=== PATIENT | female | born 1945 | race Caucasian/White ===

== ENCOUNTER 2024-11-14 12:36 | Inpatient (IN) | payer MEDICARE, BC, OTHER, SELFPAY ==
[2024-11-14] VITALS (10 sets, daily range): BP systolic 104–144; BP diastolic 42–66; PULSE 49–90; RESP 17–24; TEMP 36.7; O2SAT 90–98
--- NOTE | 2024-11-14 12:52 | ECG_ITS ---
[facility] Test Date: 2024-11-14 Pat Name: Arely Trinidad Department: Room: Gender: Female Postie: : 1945 Requested By: Rakan Williamson Order Number: [id number] Deb MD: Arturo Dangelo M.D. Measurements Intervals [place] Rate: 54 P: 67 AL: 170 QRS: 43 QRSD: 85 T: 51 QT: 438 QTc: 418 Interpretive Statements SINUS BRADYCARDIA LOW QRS VOLTAGE IN PRECORDIAL LEADS [QRS DEFLECTION < 1.0 mV IN CHEST LEADS] MINIMAL ST DEPRESSION [0.025+ mV ST DEPRESSION] Compared to ECG 08/16/2018 09:28:16 Low QRS voltage now present Minor ST depressions are new Electronically Signed On 11-14-2024 22:20:44 CDT by Arturo Dangelo M.D. [email or web address]
--- NOTE | 2024-11-14 12:54 | XR_ITS ---
WS: [email or web address] Exam: XR chest 1V portable [id number] Date/Time of Exam: 11/14/2024 12:54 PM Reason For Exam: chest pain Comparison 08/16/2018. Lungs are hyperinflated and clear. Heart size is normal. The mediastinum is normal in contour. Signs of coronary artery stenting. No pleural effusion. Several old RIGHT rib fractures are noted. Bony structures are otherwise intact. XR/XR chest 1V portable [id number] IMPRESSION: 1. Pulmonary hyperinflation. No acute finding.
--- OUTSIDE RECORDS SUMMARY | 2024-11-14 12:56 | XMS_ITS | Encounter Summary ---
Author Organization [facility] Address [address] [place] [address] Care Team Providers Care Regroover Name Role Phone BritAbdullahi MD Primary Care Provider [phone] Encounter Details Date Type Department Care Team (Latest Contact Info) Description 10/10/1998 Outpatient Historical 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
--- OUTSIDE RECORDS SUMMARY | 2024-11-14 12:56 | XMS_ITS | Encounter Summary ---
Author Organization [facility] Address [address] [place], [place] [address] [place] [id number] Phone Care Team Providers Care Hardware Installer Name Role Phone Unavailable Primary Care Provider Unavailabl e Reason for Visit * Reason Onset Date Comments Appointment 11/13/2024 Encounter Details Date Type Department Care Team (Late st Contact Info) Description 11/13/2024 Telephone [facility] [address] [place] [phone] Wanda Noland MD [address] , [address] [place] [address] Appointment Social History Tobacco Use Types Packs/Day Years Used Date Smoking Tobacco: Never Assessed Comments Unknown Sex and Gender Information Value Date Recorded Sex Assigned at Not on file Legal Sex Female 12:27 PM CDT Gender Identity Not on file Sexual Orientation Not on file documented as of this encounter Miscellaneous Notes * Telephone Encounter - [place] - 11/14/2024 10:38 AM CDT Scheduled.... * Telephone Encounter - Krystal Treviño - 11/14/2024 8:03 AM CDT Follow up * Telephone Encounter - Arely Bledsoe - 11/13/2024 4:33 PM CDT Pts daughter called following up on this. Pts daughter said that she does not want her to have another heart attack. Pts daughter said that if her chest starts hurting that they will call an ambulance. Pts daughter said her heart rate is 44. Pts daughter would like a call back. * Telephone Encounter - Krystal Trevioñ - 11/13/2024 3:07 PM CDT [facility] supposed to send referral documented in this encounter Plan of Treatment Upcoming Encounters Date Type Department Care Team (Late st Contact Info) Description 11/22/2024 1:40 PM CDT Office [facility] [address] [place] [address] Wanda Noland MD [address] [place] [address] , [address] [place] [phone] documented as of this encounter Visit Diagnoses Not on filedocumented in this encounter
--- OUTSIDE RECORDS SUMMARY | 2024-11-14 12:56 | XMS_ITS | Clinical Summary ---
Author Organization [facility] Address [address] [place] [address] Phone Care Team Providers Care E Tailer Name Role Phone Unavailable Primary Care Provider Unavailabl e Encounters Date Type Department Care Team Description 11/13/2024 Telephone [facility] [place] [facility] [address] [place] [address] Wanda Noland MD Appointment from Last 3 Months Social History Tobacco Use Types Packs/Day Years Used Date Smoking Tobacco: Never Assessed Comments Unknown Sex and Gender Information Value Date Recorded Sex Assigned at Not on file Legal Sex Female 12:27 PM CDT Gender Identity Not on file Sexual Orientation Not on file Plan of Treatment Upcoming Encounters Date Type Department Care Team (Late st Contact Info) Description 11/22/2024 1:40 PM CDT Office Visit [facility] [place] [facility] [address] [place] [phone] Wanda Noland MD [address] [place] [address] , [address] [address] Health Maintenance Due Date Last Done Comments MMR Vaccines (1 of 1 - Stand jocelin series) 1945 DTaP,Tdap,and Td Vaccines (1 - Tdap) 09/02/1951 Varicella Vaccines (1 of 2 - 13+ 2-dose series) 1957 Depression Screening 1962 Social Drivers of Health (SDoH) 1962 Mammogram 1984 Pneumococcal Vaccine: 50+ Ye ars (1 of 1 - PCV) 1994 Zoster Vaccines (1 of 2) 1994 Complete Fall Risk Assessment 2009 RSV Vaccines (1 - 1-dose 75+ series) 09/02/2019 COVID-19 Vaccine (2023-2 5 season) 2023 Influenza Vaccine (#1) 2024 HIB Vaccines Aged Out No longer eligi ble based on patient's age to complete this topic HPV Vaccines Aged Out No longer eligi ble based on patient's age to complete this topic Hepatitis A Vaccines Aged Out No long er eligible based on patient's age to complete this topic Hepatitis B Vaccines Aged Out No long er eligible based on patient's age to complete this topic IPV Vaccines Aged Out No longer eligi ble based on patient's age to complete this topic Meningococcal B Vaccine Aged Out No l onger eligible based on patient's age to complete this topic Meningococcal Vaccine Aged Out No yann stephanie eligible based on patient's age to complete this topic Pneumococcal Vaccine Aged Out No long er eligible based on patient's age to complete this topic Rotavirus Vaccines Aged Out No longer eligible based on patient's age to complete this topic
--- OUTSIDE RECORDS SUMMARY | 2024-11-14 12:56 | XMS_ITS | Clinical Summary ---
Author Organization [facility] [address] [facility] Address [address] [place] [address] Phone Care Team Providers Care Welding Rod Coater Name Role Phone BritAbdullahi MD Primary Care Provider [phone] Allergies Active Allergy Reactions Criticality Noted Date Comments Iodinated Contrast Media Rash,Itching Low 7 Medications clopidogrel (PLAVIX) 75 mg Tablet Take 75 mg by mouth. Active atorvastatin (LIPITOR) 40 mg tablet Take 40 mg by mouth late in the day. Active FLUoxetine (PROzac) 20 mg capsule Take 20 mg by mouth daily. Active aspirin (ECOTRIN EC) 81 mg Tablet, Delayed Release (E.C.) Take 81 mg by mouth daily. Active oxyCODONE-acetam inophen (PERCOCET) 10-325 mg Tablet Take 1 Tablet by mouth every 6 hours as needed for Pain or Pain, Severe. 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 Gender Identity Not on file Sexual Orientation Not on file Last Filed Vital Signs Vital Sign Reading Time Taken Comments Blood Pressure 130/74 09/29/2016 12:55 PM CDT Pulse 60 09/29/2016 12:55 PM CDT Temperature 37.2 C (98.9 F) 09/29/2016 12:45 PM CDT Respiratory Rate 15 09/29/2016 12:55 PM CDT Oxygen Saturation 97% 09/29/2016 12:55 PM CDT Inhaled Oxygen Concentration - - Weight 59.9 kg (132 lb) 09/29/2016 10:59 AM CDT Height 162.6 cm (5' 4 ) 09/29/2016 10:59 AM CDT Body Mass Index 22.66 09/29/2016 10:59 AM CDT Plan of Treatment Health Maintenance Due Date Last Done Comments DTAP/TDAP/TD VACCINES (1 - Tdap) 09/02/1963 PNEUMOCOCCAL VACCINE 50+ YEARS (1 of 2 - PCV) 09/01/18 63 ZOSTER VACCINE (1 of 2) 1994 OSTEOPOROSIS SCREENING 2009 RSV VACCINE (60+ or ) (1 - 1-dose 75+ series) 09/02/2019 INFLUENZA VACCINE (#1) 2024 Medical Devices Implanted Type Area Certification Technician Device Identifier Shelf Expiration Date Model / Serial / Lot Stent Bert Sft [id number] - [id number] Implanted:Qty: 1 on 09/15/2016 by Donald Cruz MD at [address] 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 04/21/2020 [id number] Insurance MEDICARE PART A AND B NERITES Advance Directives For more information, please contact: [phone] * Full Code (Latest Code Status on File) Date Activated Date Inactivated Comments 09/29/2016 11:36 AM 09/29/2016 3:28 PM * Full Code Date Activated Date Inactivated Comments 09/29/2016 10:55 AM 09/29/2016 11:36 AM * Full Code Date Activated Date Inactivated Comments 09/15/2016 1:02 PM 09/15/2016 5:02 PM * Full Code Date Activated Date Inactivated Comments 09/15/2016 12:22 PM 09/15/2016 1:02 PM Care Teams Welding Rod Coater Relationship Specialty Start Date End Date BritAbdullahi MD PCP - General Family Practice 09/08/16
--- OUTSIDE RECORDS SUMMARY | 2024-11-14 12:56 | XMS_ITS | Patient Health Record ---
Author Organization [facility] Address [address] [place], [place] [address] Care Team Providers Care Irrigator Head Name Role Phone Abdullahi Perea MD Primary Care Provider Unavailziggy Rosenthal MD, Blas Unavailable [phone] Jovi Umana DO Unavailable Unavailable Allergies Allergen (clinical drug ingredient) Drug/Non Drug Allergy documented on EMR Reaction Allergy Type Onset Date Status contrast dye during PET Scan (uncoded) itchy rash total red body Allergy Active Reason For Referral No Information Medications Medication SIG (Take, Route, Frequency, Duration) Notes Start Date End Date Status Tylenol with Codeine #4 300 mg-60 mg 1 tab po orally TID prn pain Active biotin 5000 mcg 1 softgel orally as directed Active atorvastatin 40 mg 1 tab orally once a day Active FLUoxetine 20 mg 1 cap orally once a day Active Plavix 75 mg 1 tab orally once a day Active aspirin 81 mg 1 tab orally once a day Active Social History Tobacco Use: Social History Observation Description Date Details (start date - stop date) Current Smoker NA - NA Tobacco use: Question Answer Notes : current smoker Are you interested in quitting? Not ready to caity t How many cigarettes a day do you smoke? 11-20 How often do you smoke cigarettes? every day How soon after you wake up do you smoke your fir st cigarette? 31-60 min Problems Problem Type SNOMED Code ICD Code Onset Dates Problem Status W/U Status Risk Notes Problem Low back pain (M54.5) Active confirmed Problem Lumbosacral spondylosis without myelopathy (03703428) Spondylosis without myelopathy or radiculopathy, lumbar region (M47.816) Active confirmed Problem Hypersomnia (64277571) Hypersomnia, unspecified (G47.10) Active confirmed Problem Acquired spondylolisthesis (411092094) Spondylolisthesis , lumbar region (M43.16) Active confirmed Problem Spinal stenosis of lumbar region (30996284) Spinal stenosis, lumbar region (M48.06) Active confirmed Problem Radiculopathy due to lumbar intervertebral disc disorder (863838879816269) Intervertebral disc disorders with radiculopathy, lumbar region (M51.16) Active confirmed Problem Myalgia (23508397) Myalgia (M79.1) Active confi rmed Problem Fibromyalgia (428723433) Fibromyalgia (M79.7) Active confirmed Problem Long-term current use of drug therapy (055686486) Other penitentiary (current) drug therapy (Z79.899) Active confirmed Plan Of Treatment No Information Insurance Providers Payer Name Payer Address Payer Phone Subscriber Number Group Number Insured Name Patient Relationship to Insured Coverage Start Date Coverage End Date WPS Medicare Part B Claims Department [address] [address] [place] [address] [id number] Arely Trinidad Self - patient is the insured [facility] [address] [place] [address] [id number] Bam Trinidad Spouse - patient is the spouse of the insured Medical (General) History Medical History History ICD Code Fibromyositis Hypertension Renal lithiasis Diabetes mellitus type II - prediabetic Fibromyalgia Lesions on the liver (history of: no yann stephanie) Heart stent Surgical History Surgery Date(Month/Year) Heart stent - LAD 01/2015 Lithotripsy x 9 Hospitalization History Reason Date(Month/Year)
--- OUTSIDE RECORDS SUMMARY | 2024-11-14 12:56 | XMS_ITS | Clinical Summary ---
Author Organization [facility] Address [address] [facility] Attn: Epic Prelude ADT NANCY REYES [address] Care Team Providers Care Patrol Man Name Role Phone Juan Tam MD Primary Care Provider [phone] Allergies Active Allergy Reactions Criticality Noted Date Comments Iodinated Contrast Media Rash,Itching Low 7 Medications clopidogreL (PLAVIX) 75 mg Tablet Take 75 mg by mouth. Active venlafaxine 150 mg Extended Release 24 hour tablet Take 150 mg by mouth daily with breakfast. Active prednisoLONE acetate 1 % eye drops,suspension 1 Drop 2 times daily. Active ofloxacin 0.3 % eye drops 1 Drop 4 times daily. Active FLUoxetine (PROzac) 20 mg capsule Take 20 mg by mouth daily. 09/14/2016 Active aspirin (ECOTRIN EC) 81 mg Tablet, Delayed Release (E.C.) Take 81 mg by mouth daily. 09/14/2016 Active atorvastatin (LIPITOR) 40 mg tablet Take 40 mg by mouth late in the day. 09/14/2016 Active oxyCODONE-acetam inophen (PERCOCET) 10-325 mg Tablet Take 1 Tablet by mouth every 6 hours as needed for Pain or Pain, Severe. 09/29/2016 Active multivit with minerals/lutein (MULTIVITAMIN-ME NERALS-LUTEIN ORAL) Take by mouth. Active Active Problems No known active problems Social History Tobacco Use Types Packs/Day Years Used Date Smoking Tobacco: Every Day Cigarettes Smokeless Tobacco: Never Alcohol Use Standard Drinks/Week Comments No 0 (1 standard drink = 0.6 oz pur e alcohol) Feeling Safe Answer Date Recorded Are you in a relationship wi th someone who hurts you emotionally and/or physically? 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 Gender Identity Not on file Sexual Orientation Not on file Last Filed Vital Signs Vital Sign Reading Time Taken Comments Blood Pressure 120/59 09/08/2022 2:07 PM CDT Pulse 64 09/08/2022 2:07 PM CDT Temperature 36.3 C (97.3 F) 09/08/2022 2:02 PM CDT Respiratory Rate 18 09/08/2022 2:07 PM CDT Oxygen Saturation 98% 09/08/2022 2:07 PM CDT Inhaled Oxygen Concentration - - Weight 54.4 kg (120 lb) 09/08/2022 12:54 PM CDT Height 162.6 cm (5' 4 ) 09/08/2022 12:54 PM CDT Body Mass Index 20.6 09/08/2022 12:54 PM CDT Plan of Treatment Health Maintenance Due Date Last Done Comments DTAP/TDAP/TD VACCINES (1 - Tdap) 09/02/1963 PNEUMOCOCCAL VACCINE 50+ YEARS (1 of 2 - PCV) 09/01/18 63 ZOSTER VACCINE (1 of 2) 1994 OSTEOPOROSIS SCREENING 2009 RSV VACCINE (60+ or ) (1 - 1-dose 75+ series) 09/02/2019 INFLUENZA VACCINE (#1) 2024 Medical Devices Implanted Type Area Geophysical E Logger Device Identifier Shelf Expiration Date Model / Serial / Lot Knee Knee Tecnis Eyhance Iol [id number] +18.0d Implanted:Qty : 1 on 09/16/2021 by Woo Watkins MD at [facility] Lens Left: Posterior Chamber 04/22/2024 [id number] / [id number] / Description:Tecnis Eyhance I OL DIB00 +18.0D Lens Iol Tecnis Eyhance 19.0 [id number] - [id number] Implanted:Qty : 1 on 09/08/2022 by Woo Watkins MD at [facility] Lens Right: Eye [employer] 07/25/2025 [id number] / [id number] / Stent Bert Sft [id number] - [id number] Implanted:Qty : 1 on 09/15/2016 by Donald Cruz MD 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
[2024-11-14 13:34] LABS: Hematocrit 39.4 % (36-47); Hemoglobin 13.50 g/dL (11.27-16.99); Mean Corpuscular HGB Conc 34.3 g/dL (30-55); Mean Corpuscular Hemoglobin 30.5 pg (27-33); Mean Corpuscular Volume 89.1 fl (85-98); Nucleated Red Blood Cells % 0 %; Platelet Count 167 10^3/cmm (157-399); Red Blood Count 4.42 10^6/uL (3.85-5.65); White Blood Count 5.64 10^3/uL (3.29-11.43)
[2024-11-14 13:49] LABS: Troponin(5th) Baseline 9 ng/L (0-10)
[2024-11-14 14:06] LABS: Alanine Aminotransferase 9 U/L (0-33); Albumin Level 4.4 g/dL (3.5-5.2); Alkaline Phosphatase 62 U/L (35-105); Anion Gap 15.1 (5-19); Aspartate Amino Transferase 18 U/L (0-32); Blood Urea Nitrogen 13 mg/dL (8-23); Calcium 9.6 mg/dL (8.5-10.5); Carbon Dioxide 26 mmol/L (22-29); Chloride 101 mmol/L (98-107); Creatinine Clr Calc Pharmacy 43.1092; Globulin 2.7 g/dL (1.3-4.6); Glucose 94 mg/dL (65-115); Osmolality Calculated 286 mOsm/kg (285-295); Potassium 4.1 mmol/L (3.5-5.1); Sodium 138 mmol/L (136-145); Total Protein 7.1 g/dL (6.6-8.7)
--- NOTE | 2024-11-14 14:54 | ECG_ITS ---
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 Measurements Intervals [place] Rate: 47 P: 42 [place]: 194 QRS: 37 QRSD: 86 T: 56 QT: 464 QTc: 413 Interpretive Statements SINUS BRADYCARDIA LOW QRS VOLTAGE IN PRECORDIAL LEADS [QRS DEFLECTION < 1.0 mV IN CHEST LEADS] Compared to ECG 11/14/2024 12:52:[address] DEPRESSION NO LONGER PRESENT Electronically Signed On 11-14-2024 22:43:36 CDT by Arturo Dangelo M.D. [email or web address]
--- NOTE | 2024-11-14 15:14 | ED_ITS ---
HPI - Chest Pain 2 General: Chief Complaint: Chest Pain Stated Complaint: CP on and off Dizzy confusion Fatigue Time Seen by Provider: 11/14/24 15:06 History of Present Illness: 79-year-old female who presents to the e mergency room complaining of intermittent chest pain. Patient states that she knows she had a heart attack 3 weeks ago she was working outside and got crushing chest pain in the way. She is intermittently having chest discomfort over the last few weeks while we are taking her history she had a sharp chest pain that lasted few seconds at other times it lasted for several minutes and resolves. She has a known history of heart disease in 2020 had overlapping stents placed by Dr. Maldonado. Reviewing her chart she has not been seeing cardiology here lately. She was seen at another ER within the last few days. 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 Associated symptoms: Deny abdominal pain, dyspnea or fever(s) Related Data Home Medications ?Medication ?Instructions ?Recorded ?Confirmed aspirin 81 mg tablet,delayed 81 mg PO DAILY 09/10/19 0 11/19/20 release (Adult Low Dose Aspirin) atorvastatin 40 mg tablet 40 mg PO DAILY 09/10/1904/10 trazodone 50 mg tablet 50 mg PO DAILY 09/10/1904/10 Previous Rx's ?Medication ?Instructions ?Recorded nitroglycerin 0.4 mg sublingual 0.4 mg sublingual Q5M PRN chest 11/19/20 tablet (Nitrostat) pain #25 tabs Allergies Allergy/AdvReac Type Severity Reaction Status Date / Time Iodinated Contrast Media Allergy Unknown Unknown Verified 01/30/20 11:57 Review of Systems 2 Const: Denies: fever(s) or chills Card: Reports: chest pain (Intermittent) Resp: Denies: dyspnea GI: Denies: abdominal pain : Denies: dysuria, urinary frequency or urinary urgency Musc: Denies: neck pain or back pain Skin/Breast: Denies: rash PFSH ED 2 PFSH: Medical History COPD (chronic obstructive pulmonary disease) Hyperlipidemia ASHD (arteriosclerotic heart disease) HTN (hypertension) Surgical History S/P angioplasty with stent S/P knee replacement Family History Father Myocardial infarction Social History Smoking and tobacco/nicotine status: current every day tobacco/nicotine user Physical Exam 2 Const: GENERAL APPEARANCE: cooperative ORIENTATION/CONSCIOUSNESS: Yes awake, Yes oriented to person, Yes oriented to place and Yes oriented to time HENMT: COMMON NORMALS: normocephalic, atraumatic and hearing grossly normal bilaterally HEAD & SCALP: normocephalic and atraumatic Resp: COMMON NORMALS: normal respiratory effort, No retractions, No use of accessory muscles and clear to auscultation bilaterally AUSCULTATION: clear to auscultation bilaterally Cardio: COMMON NORMALS: regular rate, regular rhythm and No murmurs present (Cardio) RATE: regular rate RHYTHM: regular rhythm GI: COMMON NORMALS: Soft to palpation and No hepatosplenomegaly present A USCULTATION: Yes normoactive bowel sounds PALPATION: Yes Soft to palpation, No Tenderness to palpation present (GI), No Guarding due to palpation present (GI) and Yes No hepatosplenomegaly present Extremity: COMMON NORMALS: normal to inspection, capillary refill normal, no clubbing, cyanosis or edema, no calf tenderness and no pedal edema Neuro: SENSORIUM/ORIENTATION: Yes oriented to person, Yes oriented to place and Yes oriented to time Skin: COMMON NORMALS: no rashes or lesions noted GENERAL SKIN EXAM: no rashes or lesions noted Course 2 Vital Signs: Vital signs: Vital Signs Temperature 98.0 F 11/14/24 12:54 Pulse Rate 52 L 11/14/24 12:54 Respiratory Rate 18 11/14/24 12:54 Blood Pressure 112/56 11/14/24 12:54 Pulse Oximetry 98 11/14/24 12:54 Oxygen Delivery Me thod Room Air 11/14/24 12:54 MDM - Chest Pain Medical Decision Making Patient has intermittent somewhat escalating chest pain for the last several weeks. EKG does not show any abnormalities her cardiac enzymes are negative she does have known heart disease she has overlapping stents however that was over 10 years ago she has not had any evaluation since. Discussed with Dr. Maldonado who is on-call for cardiology and has seen the patient in the past he recommends placing her on observation and doing a stress test in the morning. Dr. Valles will admit orders written. Lab Data 11/14/24 13:15 11/14/24 13:15 Radiology Impressions Chest X-Ray 11/14/24 12:54 IMPRESSION: 1. Pulmonary hyperinflation. No acute finding. Laboratory Results WBC 5.64 10^3/uL (3.29-11.43) 11/14/24 13:15 RBC 4.42 10^6/uL (3.85-5.65) 11/14/24 13:15 Hgb 13.50 g/dL (11.27-16.99) 11/14/24 13:15 Hct 39.4 % (36-47) 11/14/24 13:15 MCV 89.1 fl (85-98) 11/14/24 13:15 MCH 30.5 pg (27-33) 11/14/24 13:15 MCHC 34.3 g/dL (30-55) 11/14/24 13:15 RDW 12.6 % (12.1-15.1) 11/14/24 13:15 Plt Count 167 10^3/cmm (157-399) 11/14/24 13:15 MPV 9.8 fL (7.4-10.4) 11/14/24 13:15 Neut % (Auto) 51.4 % 11/14/24 13:15 Lymph % (Auto) 38.3 % 11/14/24 13:15 Hamilton % (Auto) 6.9 % 11/14/24 13:15 Eos % (Auto) 2.7 % 11/14/24 13:15 Baso % (Auto) 0.5 % 11/14/24 13:15 Neut # (Auto) 2.90 10^3/uL (1.8-7.7) 11/14/24 13:15 Lymph # (Auto) 2.2 10^3/uL (0.8-4.8) 11/14/24 13:15 Hamilton # (Auto) 0.4 10^3/uL (0.2-0.9) 11/14/24 13:15 Eos # (Auto) 0.2 10^3/uL (0.0-0.8) 11/14/24 13:15 Baso # (Auto) 0.0 10^3/uL (0.0-0.1) 11/14/24 13:15 Nucleated RBC % (auto) 0 % 11/14/24 13:15 Nucleated RBCs # 0.0 /100WBC 11/14/24 13:15 Sodium 138 mmol/L (136-145) 11/14/24 13:15 Potassium 4.1 mmol/L (3.5-5.1) 11/14/24 13:15 Chloride 101 mmol/L (98-107) 11/14/24 13:15 Carbon Dioxide 26 mmol/L (22-29) 11/14/24 13:15 Anion Gap 15.1 (5-19) 11/14/24 13:15 BUN 13 mg/dL (8-23) 11/14/24 13:15 Creatinine 0.9 mg/dL (0.5-0.9) 11/14/24 13:15 GFR Calculation Not Reportable 11/14/24 13:15 Glucose 94 mg/dL (65-115) 11/14/24 13:15 Calculated Osmolality 286 mOsm/kg (285-295) 11/14/24 13:15 Calcium 9.6 mg/dL (8.5-10.5) 11/14/24 13:15 Total Bilirubin 0.6 mg/dL (0.15-1.2) 11/14/24 13:15 AST 18 U/L (0-32) 11/14/24 13:15 ALT 9 U/L (0-33) 11/14/24 13:15 Alkaline Phosphatase 62 U/L (35-105) 11/14/24 13:15 Troponin T Baseline 9 ng/L (0-10) 11/14/24 13:15 Troponin T 120 Minute 7.69 ng/L (0-10) 11/14/24 15:14 Delta Troponin T -1.31 ABS# (0-10) L 11/14/24 15:14 Total Protein 7.1 g/dL (6.6-8.7) 11/14/24 13:15 Albumin 4.4 g/dL (3.5-5.2) 11/14/24 13:15 Globulin 2.7 g/dL (1.3-4.6) 11/14/24 13:15 All radiology interpretation(s) finalized by discharge EKG Data EKG 1: Interpretation: EKG 11/14/2024 1252 sinus bradycardia with a rate of 54 MD interval 170 QTc [address]. No acute ST changes noted. Nose acute ST elevation nonspecific ST changes in the lateral leads. No previous EKGs to compare to EKG 2: Interpretation: EKG 11/14/2024 1534 sinus bradycardia no acute ST changes no T wave inversion no significant change from EKG done earlier today. Rate of 47 MD interval 194 QTc 428 Discharge Plan Discharge Patient Disposition: Placed in Observation Clinical Impression: Unstable angina pectoris, ASHD (arteriosclerotic heart disease) Coding Level of Care Code ED Quitline Counselor for Chg Leo
[2024-11-14 15:49] LABS: Troponin 5 2HR 7.69 ng/L (0-10)
[2024-11-14 15:56] LABS: Troponin 5 2HR Delta -1.31 ABS# (0-10)
--- NOTE | 2024-11-14 16:15 | PC.PHAR ---
Pt states she no longer takes Plavix 75mg last fill 07/20/21 and pt has not had a bottle of Nitrostat 0.4mg since 11/19/20 and would really like to have a new order written for it today 11/14/24.
--- NOTE | 2024-11-14 17:29 | PM.HP ---
Providers/Chief Complaint Chief Complaint: CP on and off Dizzy confusion Fatigue History of Present Illness Arely Trinidad is a 79 year old woman with a history of chronic obstructive pulmonary disease (COPD), coronary artery disease (CAD) status-post single stent placement in 2019, hypertension, hyperlipidemia, and a known abdominal aortic aneurysm (AAA) who presented to the emergency department (ED) for recurrent episodes of chest pain. An episode three weeks ago was described as crushing and involved the whole upper chest and back, lasting approximately 45 minutes without seeking medical care; the patient suspects this may have been a myocardial infarction. Over the last several weeks she reports shorter but more frequent episodes occurring randomly, sometimes associated with dizziness, confusion, and post-episode fatigue. Sublingual nitroglycerin from an old prescription (two tablets taken five minutes apart) did not relieve the initial severe episode and the supply is now exhausted. No clear exertional component is noted; pain is not pleuritic and is unaffected by arm movement or deep inspiration. Denies cough, hemoptysis, fever, nausea, vomiting, diarrhea, melena, hematochezia, or lower-extremity swelling. She sleeps in a recliner for comfort but denies orthopnea or paroxysmal nocturnal dyspnea. ED work-up: vital signs BP 120/56 mmHg, pulse 52 bpm, respiratory rate 18/min, temperature 98 ?F, SpO? 98 % on room air. Complete blood count (CBC) and comprehensive metabolic panel (CMP) are unremarkable. Serial troponins: baseline 9 ng/L, two-hour 7.69 ng/L (non-rising). Electrocardiogram (ECG) shows sinus bradycardia at 47 bpm with T-wave flattening in aVL and V2, no definitive ischemic changes. Chest X-ray demonstrates pulmonary hyperinflation without acute infiltrate. Aspirin 324 mg was administered in the ED, and cardiology was consulted. Socially, she continues to smoke one pack per day and declines alcohol or illicit drugs. She reports missed doses of home aspirin and began atorvastatin only yesterday. She maintains a DNR ([id number]) preference and designates her daughter as surrogate decision-maker. Review of Systems Const: Denies: fever(s), chills, body aches or malaise ENMT: Denies: throat pain Card: Reports: chest pain; Denies: edema, pre-syncope or dyspnea on exertion Resp: Denies: dyspnea, productive cough, change in phlegm color or hemoptysis GI: Denies: abdominal pain, nausea, vomiting, diarrhea, constipation, hematochezia or melena : Denies: flank pain, urinary frequency or hematuria Musc: Denies: back pain, joint swelling or joint redness Skin/Breast: Denies: rash or new lesions Neuro: Denies: headache(s) or confusion Medications/Allergies Home Medications ?Medication ?Instructions ?Recorded ?Confirmed ?Last Taken ?Type aspirin 81 mg tablet,delayed 81 mg PO DAILY 09/10/19 11/14/24 11/13/24 History release (Adult Low Dose Aspirin) atorvastatin 40 mg tablet 40 mg PO DAILY 09/10/19 11/14/24 11/13/24 History trazodone 50 mg tablet 50 mg PO BEDTIME 09/10/19 11/14/24 11/13/24 History nitroglycerin 0.4 mg sublingual 0.4 mg sublingual Q5M PRN chest 11/19/20 11/14/24 Unknown Rx tablet (Nitrostat) pain #25 tabs Allergies Allergy/AdvReac Type Severity Reaction Status Date / Time Iodinated Contrast Media Allergy Unknown Unknown Verified 01/30/20 11:57 PFSH Acute PFSH: Medical History Emphysema lung AAA (abdominal aortic aneurysm) COPD (chronic obstructive pulmonary disease) Hyperlipidemia ASHD (arteriosclerotic heart disease) HTN (hypertension) Surgical History History of coronary angioplasty with insertion of stent S/P angioplasty with stent S/P knee replacement Family History Father Myocardial infarction Social History (Updated 11/14/24 @ 17:44 by Silverio Valles MD) Smoking and tobacco/nicotine status: current every day tobacco/nicotine user Alcohol intake: never Substance/Drug Use: never Vitals/I&O/Wt Last Vital Signs Temp 98.0 F 11/14/24 12:54 Pulse 52 L 11/14/24 12:54 Resp 18 11/14/24 12:54 BP 112/56 11/14/24 12:54 Pulse Ox 98 11/14/24 12:54 O2 Del Method Room Air 11/14/24 12:54 Weight last 48 hrs Weight 54.885 kg Physical Exam Narrative: Accompanied by her daughter Const: COMMON NORMALS: patient oriented x3 and alert GENERAL APPEARANCE: cooperative ORIENTATION/CONSCIOUSNESS: Yes awake HENMT: COMMON NORMALS: oropharynx normal Neck/C-Spine: COMMON NORMALS: no JVD Resp: COMMON NORMALS: normal respiratory effort and clear to auscultation bilaterally AUSCULTATION: clear to auscultation bilaterally Cardio: COMMON NORMALS: no JVD, regular rhythm, S1 normal heart sound present, S2 normal heart sound present and No murmurs present (Cardio) RHYTHM: regular rhythm HEART SOUNDS: S1 normal heart sound present and S2 normal heart sound present GI: COMMON NORMALS: Normal to inspection, nondistended, normoactive bowel sounds present, Soft to palpation and non-tender PALPATION: Yes Soft to palpation Extremity: COMMON NORMALS: no joint enlargement and no pedal edema Neuro: COMMON NORMALS: patient oriented x3 and moves all extremities SENSORIUM/ORIENTATION: Yes alert Skin: COMMON NORMALS: no rashes or lesions noted GENERAL SKIN EXAM: no rashes or lesions noted Data 11/14/24 13:15 11/14/24 13:15 A&P Assessment and plan 1. Unstable angina pectoris: Recurrent chest pain : Episodes of crushing to mild chest pain over several weeks, non-pleuritic, associated with dizziness/confusion; initial severe episode 3 weeks ago lasting 45 minutes. Possible unstable angina. Serial troponins non-dynamic; ECG sinus bradycardia without ischemia. Differential includes unstable angina/NSTEMI, vasospasm, pulmonary embolism, musculoskeletal pain. Free of chest pain at this time. Reviewed vitals, CBC, CMP, troponin baseline and 2-hour, EKG, on my interpretation with sinus bradycardia, nonspecific changes with T wave flattening in aVL and V2, pending official read. Reviewed chest x-ray, ED provider note, discussed with ED provider. - Continue serial troponin monitoring per ED protocol - Assess echocardiogram - Continue aspirin, heparin drip for possible unstable angina. Monitor for risk of bleeding. Continue statin. No beta-stephanie due to bradycardia. - Admit for telemetry observation to watch for recurrent pain - Administer nitroglycerin as needed for chest pain - Obtain 12-lead ECG with any recurrent pain - Order D-dimer to evaluate for possible pulmonary embolism - Cardiology consultation Plan: Coronary artery disease : Known CAD with prior stent (2019) and multiple risk factors (HTN, HLD, tobacco). Has missed aspirin doses. Increasing frequency of chest pain raises concern for ischemia or in-stent restenosis. - Cardiology consultation arranged in ED - Schedule stress test (avoid caffeine; NPO after midnight) - If stress test abnormal, consider repeat coronary angiogram (per cardiology) - Order transthoracic echocardiogram to assess cardiac function Sinus bradycardia : ED ECG shows sinus bradycardia at 47 bpm; pulse 52 bpm. Chronic obstructive pulmonary disease : History of COPD with radiographic pulmonary hyperinflation; currently asymptomatic from respiratory standpoint. - Monitor respiratory status during hospitalization Tobacco use disorder : Active smoker (1 pack/day) contributing to CAD, COPD, and AAA risk. Discussed smoking cessation for 3-1/2 minutes. She has not been ready to quit. Has not tried. Discussed risks including lung disease with known emphysema, but also cardiovascular risks and various types of cancer. - Provided smoking-cessation counseling; nicotine patches/lozenges offered, patient declined but may request if cravings arise Abdominal aortic aneurysm : Long-standing AAA discovered ~15?20 years ago on prior imaging; never followed with ultrasound. - Order abdominal ultrasound to assess current AAA size - Advise outpatient surveillance via primary care after discharge Goals of care discussion : Patient prefers DNR status; wishes comfort measures only if unable to return to normal function; daughter designated surrogate. - Document DNR status in chart Hospitalization bundle : General inpatient management needs. - Admit to medical floor for monitoring and further work-up - Allow diet as tolerated, avoiding caffeine; NPO after midnight for stress test PDMP PDMP Reviewed: Not Reviewed Attestations Medical Necessity Statement*: Place in observation for additional assessment management of recurrent chest pain, possible unstable angina in a lady with underlying CAD, history of prior stent, CAD risk factors with active smoking. Diagnoses Unstable angina pectoris I20.0
--- NOTE | 2024-11-14 19:09 | ECG_ITS ---
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 Measurements Intervals Helen Rate: 47 P: 57 MS: 211 QRS: 44 QRSD: 90 T: 66 QT: 457 QTc: 408 Interpretive Statements SINUS BRADYCARDIA WITH FIRST DEGREE AV BLOCK MINIMAL ST DEPRESSION [0.025+ mV ST DEPRESSION] Compared to ECG 11/14/2024 15:34:58 First degree AV block now present Electronically Signed On 11-14-2024 22:37:20 CDT by Arturo Dangelo M.D. [email or web address]
[2024-11-14 19:44] LABS: Troponin 5 6HR 7.35 ng/L (0-10); Troponin 5 6HR Delta -1.65 ng/L (0-12)
--- NOTE | 2024-11-14 20:24 | USCV_ITS ---
Arely Trinidad Age: 79 Gender: F : 1945 Exam Date: 11/14/2024 20:48 Ordering Phys: Silverio Valles MD Technologist: SHREYAS Exam Location[place] [facility] [place] Indication: UA, COPD, CAD s/p PCI, HTN, HL BP: 104 / 63 HR: 44 Rhythm: Sinus bradycardia Technical Quality: Adequate MEASUREMENTS (Male / Female) Normal Values 2D ECHO LV Diastolic Diameter PLAX 3.5 cm 4.2 - 5.9 / 3.9 - 5.3 cm IVS Diastolic Thickness 1.1 cm 0.6 - 1.0 / 0.6 - 0.9 cm IVS Systolic Thickness 2.0 cm LVPW Diastolic Thickness 1.2 cm 0.6 - 1.0 / 0.6 - 0.9 cm LVPW Systolic Thickness 1.3 cm LVOT Diameter 1.6 cm LV Ejection Fraction 2D Teich 61.8 % LV Ejection Fraction MOD 4C 64.8 % LV Ejection Fraction MOD 2C 56.7 % LV Ejection Fraction 2C AL 55.0 % LA Diameter 2.5 cm Aorta at Sinotubular Diameter 2.7 cm IVC Diameter 1.6 cm M-MODE LA Ao Ratio MM 1.1 AV Cusp Separation MM 1.4 cm DOPPLER AV Peak Velocity 105.0 cm/s LVOT Peak Velocity 75.0 cm/s AV Area Cont Eq vti 2.0 cm squared AV Area Cont Eq pk 1.4 cm squared MV Peak Velocity 121.0 cm/s MV Area PHT 2.8 cm squared Mitral E to A Ratio 0.9 TV Peak Velocity 207.5 cm/s TR Peak Velocity 214.0 cm/s TR Peak Gradient 18.3 mmHg TV Peak E Velocity 32.0 cm/s PV Peak Velocity 69.0 cm/s FINDINGS Left Ventricle Normal left ventricular size and systolic function with no regional wall motion abnormalities. Normal left ventricular size and systolic function, EF 55-60%. Grade 1 diastolic dysfunction Right Ventricle Normal right ventricular size and systolic function. Right Atrium Normal right atrial size. Left Atrium Normal left atrial size. Mitral Valve Mild mitral annular calcification. Mild mitral valve regurgitation. Aortic Valve Thickened aortic valve. No aortic valve stenosis. Tricuspid Valve Mild tricuspid valve regurgitation. Pulmonary artery systolic pressure is normal Pulmonic Valve Not well visualized Pericardium Normal Aorta Normal in size IVC Appears to be normal CONCLUSIONS LV systolic function is normal with EF of 55-60% Grade 1 diastolic dysfunction Mild mitral valve regurgitation. Mild tricuspid valve regurgitation. Kyaw Mackay MD (Electronically Signed) Final Date: 14 November 2024 23:26 S
--- NOTE | 2024-11-14 20:24 | USCV_ITS ---
Arely Trinidad Age: 79 Gender: F : 1945 Exam Date: 11/14/2024 21:14 Ordering Phys: Silverio Valles MD Technologist: SHREYAS [place] [facility] [place]: reported history of AAA. HISTORY: Diameter (cm) AP x Transverse x Length Velocity (cm/s) Waveform Prox Aorta: 2.14 x 2.34 x Triphasic Mid Aorta: 1.69 x 2.24 x Triphasic Distal Aorta: 2.07 x 2.09 x Triphasic Right Iliac Prox: 1.60 x 1.80 x Triphasic Left Iliac Prox: 1.10 x 1.50 x Triphasic Stent Prox Landing x x Aneurysmal Sac Max x x Lt Lat Sac Dim Rt Lat Sac Dim Stent Dist Landing x x Right Iliac Stent x x Left Iliac Stent x x Right Renal Art Left Renal Art FINDINGS: CONCLUSIONS Normal caliber abdominal aorta Slightly Aneurysmal Right common iliac artery 1.6 x 1.8cm Normal Left Iliac Moderate atheromatous disease Tommie Bender MD (Electronically Signed) Final Date: 15 November 2024 08:50 S
[2024-11-14] MEDS: heparin drip 25,000 UNIT/500 ML PREMIX 16 UNIT IV (21:50)
[2024-11-14] MEDS: heparin 5,000 unit/mL INJ 1 mL IVP (21:50)
[2024-11-15] VITALS (7 sets, daily range): BP systolic 96–129; BP diastolic 45–58; PULSE 47–73; RESP 14–19; TEMP 35.8–36.7; O2SAT 94–98
--- NOTE | 2024-11-15 | ECG_ITS ---
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 Interpretive Statements Procedure: A total of 0.4 mg of Lexiscan was infused over 20 seconds. The stress phase was continued for a total of 5 minutes. Sestamibi was injected 20 seconds after the Lexiscan infusion. Vital signs and ECG findings: Resting EKG???sinus bradycardia, heart rate 48, mild ST depressions Stress EKG???no worsening of baseline mild ST depressions At baseline, blood pressure was 129/49 with a heart rate of 46 bpm The lowest blood pressure after Lexiscan infusion was 110/53 with a heart rate of 75 bpm. In recovery, the patient's blood pressure was 119/52 with a heart rate of 72. Conclusion: 1. Normal EKG response to Lexiscan infusion 2. No Lexiscan induced chest pain or cardiac arrhythmia. 3. Normal blood pressure and heart rate response. 4. Nuclear myocardial perfusion scan pending; see separate report. Electronically Signed On 11-15-2024 09:10:05 CDT by Arturo Dangelo M.D. [email or web address] [id number]
[2024-11-15 04:47] LABS: Hematocrit 38.2 % (36-47); Hemoglobin 13.00 g/dL (11.27-16.99); Mean Corpuscular HGB Conc 34.0 g/dL (30-55); Mean Corpuscular Hemoglobin 30.2 pg (27-33); Mean Corpuscular Volume 88.6 fl (85-98); Nucleated Red Blood Cells % 0 %; Platelet Count 163 10^3/cmm (157-399); Red Blood Count 4.31 10^6/uL (3.85-5.65); White Blood Count 4.73 10^3/uL (3.29-11.43)
[2024-11-15 05:09] LABS: Anion Gap 15.0 (5-19); Blood Urea Nitrogen 13 mg/dL (8-23); Calcium 9.2 mg/dL (8.5-10.5); Carbon Dioxide 23 mmol/L (22-29); Chloride 106 mmol/L (98-107); Creatinine Clr Calc Pharmacy 47.9513; Glucose 96 mg/dL (65-115); Osmolality Calculated 290 mOsm/kg (285-295); Potassium 4.0 mmol/L (3.5-5.1); Sodium 140 mmol/L (136-145)
[2024-11-15 06:29] LABS: Partial Thromboplastin Time 250.0 SECONDS (23.9-36.7)
[2024-11-15] MEDS: ondansetron 2 mg/ML SDV 2 mL 4 MG IVP (07:54)
[2024-11-15 09:14] LABS: Partial Thromboplastin Time 56.6 SECONDS (23.9-36.7)
--- NOTE | 2024-11-15 09:32 | PC.NURSE ---
patient's ptt came back at 56 after being off for 2 hours for a ptt of 250. Per Dr Melendez, restart at same dose.
[2024-11-15] MEDS: heparin drip 25,000 UNIT/500 ML PREMIX 16 UNIT IV (09:39)
--- NOTE | 2024-11-15 09:51 | P.CONIM_ITS ---
<Statement entered by Gildardo Archer MD - 11/15/24 20:06> Patient was evaluated and cared for in conjunction with an advanced practice practitioner. I personally examined the patient and reviewed the chart and all pertinent data including imaging, telemetry, and laboratory results. I discussed the patient in detail with the advanced practice practitioner. Please see their note for complete H&P testing result and agreed upon plan of care for the patient. Providers/Reason For Consult 2 Consulting Physician/Specialty*: Dr Darlin Archer, interventional cardiology Reason for Consult*: Chest pain Requesting Physician: Dr. Valles Attending Physician: Kimmie Melendez MD History of Present Illness History of Present Illness Arely Trinidad is a 79 year old female with past medical history of COPD, CAD (stent to the LAD in 2019), hypertension, hyperlipidemia, questionable history of abdominal aortic aneurysm. She presented to the emergency room yesterday with chest pain and dizziness, reported she had a heart attack 3 weeks ago but did not receive medical attention at that time. Since then she has had some chest pain with fatigue afterward, nonexertional and nonpleuritic. Ultrasound of the aorta did not show aneurysm. D-dimer negative. Troponin series: 9->7 -> 7. Labs otherwise unremarkable, normal renal function. Echocardiogram 11/14/2024: LVEF 55 to 60% grade 1 diastolic dysfunction, mild mitral and tricuspid regurgitation. EKG shows sinus bradycardia with first- degree block, heart rate 47 bpm. Initial EKG showed minimal ST depression in the inferior leads. Stress test obtained this morning pending read. She is a DNR. Review of Systems 2 Const: Denies: fever(s), chills, change in weight, fatigue or diaphoresis Eyes: Denies: change in vision ENMT: Denies: epistaxis Card: Reports: chest pain; Denies: palpitations, irregular heart rhythm, edema, syncope, pre-syncope, dyspnea on exertion, orthopnea or leg pain with exertion Resp: Denies: dyspnea, productive cough or wheezing GI: Denies: nausea, vomiting, hematemesis, hematochezia or melena : Denies: hematuria Musc: Denies: extremity swelling Brigido/Lymph: Denies: easy bruising or easy bleeding Medications/Allergies Home Medications ?Medication ?Instructions ?Recorded ?Confirmed ?Last Taken ?Type aspirin 81 mg tablet,delayed 81 mg PO DAILY 09/10/19 0 11/14/24 11/13/24 History release (Adult Low Dose Aspirin) atorvastatin 40 mg tablet 40 mg PO DAILY 09/10/19 08/10/1211/13/24 History trazodone 50 mg tablet 50 mg PO BEDTIME 09/10/1911/13/24 History nitroglycerin 0.4 mg sublingual 0.4 mg sublingual Q5M PRN chest 11/19/20 11/14/24 Unknown Rx tablet (Nitrostat) pain #25 tabs Allergies Allergy/AdvReac Type Severity Reaction Status Date / Time Iodinated Contrast Media Allergy Unknown Unknown Verified 01/30/20 11:57 Current Medications Generic Name Dose Route Start Last Admin Trade Name Freq PRN Reason Stop Dose Admin Aspirin 81 mg 11/15/24 09:00 11/15/24 09:05 Aspirin 81 Mg Ec Tablet PO 81 mg DAILY RADHA Administration Atorvastatin Calcium 40 mg 11/15/24 09:00 11/15/24 09:05 Atorvastatin 40 Mg Tablet PO 40 mg DAILY RADHA Administration Sodium Chloride 1,000 mls @ 100 mls/hr 11/14/24 20:24 11/14/24 21:48 Sodium Chloride 0.9% IV 100 mls/hr .Q10H RADHA Administration Heparin Sodium/Sodium Chloride 25,000 unit in 500 mls @ 0 mls/hr 11/14/24 20:24 11/15/24 09:39 Heparin Drip IV 14.58 unit/kg/hr CONT RADHA 16 mls/hr Protocol Administration Per Protocol Ondansetron HCl 4 mg 11/15/24 06:05 11/15/24 07:54 Ondansetron 2 Mg/Ml Sdv 2 Ml IVP 4 mg Q2M PRN Administration NAUSEA Trazodone HCl 50 mg 11/14/24 21:00 11/14/24 21:53 Trazodone 50 Mg Tablet PO 50 mg BEDTIME RADHA Administration PFSH Acute 2 PFSH: Medical History Emphysema lung AAA (abdominal aortic aneurysm) COPD (chronic obstructive pulmonary disease) Hyperlipidemia ASHD (arteriosclerotic heart disease) HTN (hypertension) Surgical History History of coronary angioplasty with insertion of stent S/P angioplasty with stent S/P knee replacement Family History Father Myocardial infarction Social History Smoking and tobacco/nicotine status: current every day tobacco/nicotine user Alcohol intake: never Substance/Drug Use: never Vitals/I&O/Wt Last Vital Signs Temp 97.4 F L 11/15/24 04:00 Pulse 73 11/15/24 07:41 Resp 16 11/15/24 04:00 BP 119/52 11/15/24 07:41 Pulse Ox 98 11/15/24 04:00 O2 Del Method Room Air 11/15/24 04:00 11/14/24 11/15/24 11/15/24 22:59 06:59 14:59 Intake Total 139.2 / 139.2 0 / 0 Balance 139.2 / 139.2 0 / 0 Weight last 48 hrs Weight 117 lb 9.6 oz Weight 116 lb Weight 121 lb Physical Exam 2 Const: COMMON NORMALS: no acute distress and patient oriented x3 GENERAL APPEARANCE: cooperative and comfortable ORIENTATION/CONSCIOUSNESS: Yes awake, Yes oriented to person, Yes oriented to place and Yes oriented to time Chest: COMMONS NORMALS: normal inspection of the chest and normal palpation of entire chest wall CHEST: Yes Symmetrical chest wall rise Resp: COMMON NORMALS: normal respiratory effort, No retractions, No use of accessory muscles and clear to auscultation bilaterally EFFORT & INSPECTION: Yes symmetric chest movement AUSCULTATION: clear to auscultation bilaterally Cardio: COMMON NORMALS: regular rate, regular rhythm, S1 normal heart sound present, S2 normal heart sound present, No gallops present (Cardio), No clicks present (Cardio), No murmurs present (Cardio) and No rub (Cardio) RATE: r egular rate RHYTHM: regular rhythm HEART SOUNDS: S1 normal heart sound present and S2 normal heart sound present PERIPHERAL PULSES: radial pulses present Extremity: COMMON NORMALS: no pedal edema Neuro: COMMON NORMALS: patient oriented x3 and moves all extremities S ENSORIUM/ORIENTATION: Yes oriented to person, Yes oriented to place and Yes oriented to time Data 11/15/24 04:17 11/15/24 04:17 A&P Assessment and plan 1. ASHD (arteriosclerotic heart disease): 2. Unstable angina pectoris: 3. HTN (hypertension): Plan: She is chest pain-free currently. She has been started on a heparin infusion. Due to her history of stent placement and typical chest pain symptoms, we will plan for coronary angiogram likely Tuesday. She can eat today and tomorrow. PDMP PDMP Reviewed: Not Reviewed Coding Level of Care Code Acute Code for [facility] Diagnoses ASHD (arteriosclerotic heart disease) I25.10 Unstable angina pectoris I20.0 HTN (hypertension) I10
--- NOTE | 2024-11-15 12:25 | PM.PN ---
Subjective Subjective: The patient was seen in the morning and was comfortable alert oriented and interactive On heparin drip continue, to follow the stress test that has been done today Vitals/I&O/Wt Last Vital Signs Temp 97.9 F 11/15/24 11:59 Pulse 58 L 11/15/24 11:59 Resp 19 H 11/15/24 11:59 BP 98/46 11/15/24 11:59 Pulse Ox 95 11/15/24 11:59 O2 Del Method Room Air 11/15/24 04:00 11/14/24 11/15/24 11/15/24 22:59 06:59 14:59 Intake Total 139.2 / 139.2 1480 / 1480 Balance 139.2 / 139.2 1480 / 1480 Weight last 48 hrs Weight 53.342 kg Weight 52.617 kg Weight 54.885 kg Physical Exam Narrative: General: Alert oriented x3, patient seen without any distress HEENT: Normocephalic, atraumatic, EOMI, breathing at room air Cardio: Regular rate rhythm, normal S1-S2, no murmurs rubs gallops, JVD_normal Respiratory: Good bilateral air entry, no wheezes no rhonchi appreciated GI: Abdomen soft, nontender, nondistended, normoactive bowel sounds present all 4 quadrants, Neuro: Cranial nerves II to XII intact, strength 5/5, sensation 5/5, no gross neurological deficit Behavior: Appropriate and cooperative Extremities: Pulses 2+, no edema, no cyanosis Skin: Visible skin intact, no rashes Data 11/15/24 04:17 11/15/24 04:17 A&P Assessment and plan 1. Unstable angina pectoris: Recurrent chest pain/unstable angina likely? Versus musculoskeletal pain is a differential:Episodes of crushing to mild chest pain over several weeks, non-pleuritic, associated with dizziness/confusion; initial severe episode 3 weeks ago lasting 45 minutes. Possible unstable angina. - Serial troponins rise not significant - ECG sinus bradycardia without ischemia. -Echo did not show any regional wall motion with EF of 55 to 60% - Aspirin and statin hold beta-blockers due to bradycardia - Admit for telemetry observation to watch for recurrent pain - Nitro as needed for chest pain -D-dimers negative therefore PE less likely and chest pain resolved - Cardiology on board and to follow-up with, Plan for coronary angio likely on Tuesday Plan: Sinus bradycardia : Hold beta-blockers EKG showed sinus bradycardia without any AV blocks Continue to monitor heart rate and any syncopal Chronic obstructive pulmonary disease : Stable -DuoNebs as needed - Monitor respiratory status during hospitalization Tobacco use disorder : Active smoker (1 pack/day) contributing to CAD, COPD, and AAA risk. Discussed smoking cessation for 3-1/2 minutes. She has not been ready to quit. Has not tried. Discussed risks including lung disease with known emphysema, but also cardiovascular risks and various types of cancer. - Provided smoking-cessation counseling; nicotine patches/lozenges offered, patient declined but may request if cravings arise Abdominal aortic aneurysm : Long-standing AAA discovered ~15?20 years ago on prior imaging; never followed with ultrasound. - Order abdominal ultrasound to assess current AAA size - Advise outpatient surveillance via primary care after discharge Goals of care discussion : Patient prefers DNR status; wishes comfort measures only if unable to return to normal function; daughter designated surrogate. - Document DNR status in chart Cardiac diet VTE: Heparin infusion PDMP PDMP Reviewed: Not Reviewed Attestations Medical Necessity Statement*: Patient will stay in the hospital for further management of chest pain with a differential diagnosis of stable angina currently on heparin infusion and to follow the stress test Time Spent in Patient Care: 16 - 35 minutes (>than 50% of time spent in counselling and/or direct pt care on unit). Other Attestations: Patient condition has been discussed at length with the patient/family, I have independently reviewed the chart labs imaging and diagnostics and EKG. the goals of care and code status with the patient/family/NOK/legal bilingual sales representative, and documented accordingly. The patient/family has been informed about the current condition and further plan of care. Agreed with the plan of care and understood without any language barrier. This documentation was created by [employer] senior accounts payable clerk software. Every effort was made to ensure accuracy of senior accounts payable clerk. Any obvious errors or omissions should be clarified with the author of the document. Coding Level of Care Code 21220 Diagnoses Unstable angina pectoris I20.0
[2024-11-15 15:59] LABS: Partial Thromboplastin Time 86.7 SECONDS (23.9-36.7)
--- NOTE | 2024-11-15 18:04 | NMCV_ITS ---
NM ángel perf SPECT r/s* [id number] Arely Trinidad Age: 79 Gender: F : 1945 Exam Date: 11/15/2024 06:51 Ordering Phys: Silverio Valles MD Technologist: JM Ruiz Exam Location: [facility] Indications: cp STRESS TEST Please see separate stress test report in [facility] for full findings IMAGE PROTOCOL Rest/Stress 1 Lexiscan Day Radiopharmaceutical Dose (mCi) Administration Site Administered by Rest: Tc-99m 10.6 IV JM Fenton Sestamibi Stress:Tc-99m 32.7 IV JM Fenton Sestamibi Rest: 11/15/2024 60 Discovery 630 Stress: 11/09/2024 30 Discovery 630 0.4mg Lexiscan. Images obtained in supine and prone position. SPECT RESULTS Technical Quality: Good Raw Data Analysis: Normal Image Corrections: No attenuation or motion correction applied Summed Stress Score: 0 Summed Rest Score: 0 Summed Difference Score: 0 PERFUSION FINDINGS SPECT images demonstrate homogeneous tracer distribution throughout the myocardium. FUNCTIONAL RESULTS (calculated via Gated SPECT) Stress Image LV EF (%): 86 Stress EDV (mL):50 TID: 0.93 Stress ESV (mL):7 FUNCTIONAL FINDINGS: There is normal left ventricular systolic function. IMPRESSIONS Myocardial perfusion imaging is normal. Arturo Dangelo MD, FACC (Electronically Signed) Final Date: 15 November 2024 12:44 S
[2024-11-15 22:23] LABS: Partial Thromboplastin Time 115.6 SECONDS (23.9-36.7)
--- NOTE | 2024-11-15 22:55 | PC.NURSE ---
At beginning of shift heparin gtt as running at 14 mls/hr. Per MAY last administration shows it as 16 mls/hr. Will titrate off off the 14 mls/hr down to 11 mls/hr verified with Arely JACQUES.
[2024-11-16] VITALS: BP 121/50; PULSE 75; RESP 17; O2SAT 93
[2024-11-16 04:00] VITALS: BP 112/42; PULSE 57; RESP 17; TEMP 37.1; O2SAT 97
[2024-11-16 05:00] LABS: Hematocrit 34.3 % (36-47); Hemoglobin 11.70 g/dL (11.27-16.99); Mean Corpuscular HGB Conc 34.1 g/dL (30-55); Mean Corpuscular Hemoglobin 30.5 pg (27-33); Mean Corpuscular Volume 89.6 fl (85-98); Nucleated Red Blood Cells % 0 %; Platelet Count 143 10^3/cmm (157-399); Red Blood Count 3.83 10^6/uL (3.85-5.65); White Blood Count 4.95 10^3/uL (3.29-11.43)
[2024-11-16 05:19] LABS: Alanine Aminotransferase 8 U/L (0-33); Albumin Level 3.6 g/dL (3.5-5.2); Alkaline Phosphatase 51 U/L (35-105); Anion Gap 14.6 (5-19); Aspartate Amino Transferase 21 U/L (0-32); Blood Urea Nitrogen 12 mg/dL (8-23); Calcium 8.8 mg/dL (8.5-10.5); Carbon Dioxide 22 mmol/L (22-29); Chloride 113 mmol/L (98-107); Creatinine Clr Calc Pharmacy 42.6234; Globulin 2.5 g/dL (1.3-4.6); Glucose 98 mg/dL (65-115); Osmolality Calculated 300 mOsm/kg (285-295); Potassium 4.6 mmol/L (3.5-5.1); Sodium 145 mmol/L (136-145); Total Protein 6.1 g/dL (6.6-8.7)
[2024-11-16 05:23] LABS: Partial Thromboplastin Time 101.1 SECONDS (23.9-36.7)
[2024-11-16 06:00] VITALS: BMI 21.8
--- NOTE | 2024-11-16 07:14 | PC.NURSE ---
this nurse mistakenly forgot to enter the rate change on the heparin in the MAR but the heparin was changed to 14ml/hr on 11/15/24 at 1545. Verified with GEORGIE Zimmerman.
[2024-11-16 07:51] VITALS: BP 115/53; PULSE 61; RESP 19; TEMP 36.4; O2SAT 98
--- NOTE | 2024-11-16 09:15 | P.PN_ITS ---
<Statement entered by Gildardo Archer MD - 11/16/24 19:11> Patient was evaluated and cared for in conjunction with an advanced practice practitioner. I personally examined the patient and reviewed the chart and all pertinent data including imaging, telemetry, and laboratory results. I discussed the patient in detail with the advanced practice practitioner. Please see their note for complete H&P testing result and agreed upon plan of care for the patient. Subjective 2 Subjective: Stress test performed yesterday was normal, no ischemia or fixed defects. She has been chest pain-free. Vitals/I&O/Wt Last Vital Signs Temp 97.6 F 11/16/24 07:51 Pulse 61 11/16/24 07:51 Resp 19 H 11/16/24 07:51 BP 115/53 11/16/24 07:51 Pulse Ox 98 11/16/24 07:51 O2 Del Method Room Air 11/16/24 07:51 11/15/24 11/16/24 11/16/24 22:59 06:59 14:59 Intake Total 1571.733 / 3484.883 73.15 / 3484.883 998.333 / 998.333 Balance 1571.733 / 3484.883 73.15 / 3484.883 998.333 / 998.333 Weight last 48 hrs Weight 127 lb 5 oz Weight 117 lb 9.6 oz Weight 116 lb Weight 121 lb Physical Exam 2 Const: COMMON NORMALS: no acute distress and patient oriented x3 GENERAL APPEARANCE: cooperative and comfortable ORIENTATION/CONSCIOUSNESS: Yes awake, Yes oriented to person, Yes oriented to place and Yes oriented to time Chest: COMMONS NORMALS: normal inspection of the chest and normal palpation of entire chest wall CHEST: Yes Symmetrical chest wall rise Resp: COMMON NORMALS: normal respiratory effort, No retractions, No use of accessory muscles and clear to auscultation bilaterally EFFORT & INSPECTION: Yes symmetric chest movement AUSCULTATION: clear to auscultation bilaterally Cardio: COMMON NORMALS: regular rate, regular rhythm, S1 normal heart sound present, S2 normal heart sound present, No gallops present (Cardio), No clicks present (Cardio), No murmurs present (Cardio) and No rub (Cardio) RATE: r egular rate RHYTHM: regular rhythm HEART SOUNDS: S1 normal heart sound present and S2 normal heart sound present PERIPHERAL PULSES: radial pulses present Extremity: COMMON NORMALS: no pedal edema Neuro: COMMON NORMALS: patient oriented x3 and moves all extremities S ENSORIUM/ORIENTATION: Yes oriented to person, Yes oriented to place and Yes oriented to time Data 11/16/24 04:13 11/16/24 04:13 A&P Assessment and plan 1. ASHD (arteriosclerotic heart disease): 2. HTN (hypertension): Plan: Echocardiogram also revealed normal LVEF with no regional wall motion abnormality. Given that she has not had a recurrence of chest pain and that her ischemic workup has been normal, will start her on isosorbide mononitrate, Protonix and plan for discharge today. She should follow-up with cardiology in 2 weeks for reassessment. PDMP PDMP Reviewed: Not Reviewed Attestations 2 Medical Necessity Statement*: Probable discharge home Coding Level of Care Code Acute Code for g [facility] Diagnoses ASHD (arteriosclerotic heart disease) I25.10 HTN (hypertension) I10
--- NOTE | 2024-11-16 09:52 | PC.CHAP ---
Pastoral Care Encounter/Spiritual Assessment Type of Contact [] Declined policy director visit [] Patient/Family/Request visit [] Outpatient visit [] Follow-up visit [] Physician referral [] Code/Alert [x] Routine visit [] Staff referral [] Actively dying [] Patient sleeping [] Family support [] [] Out of room [] Palliative care [] [] Receiving care in room [] Pre-surgical visit [] Trauma [] Long length of stay [] ICU visit [] Other: Relational/Emotional Strength [x] Patient feels connected with others/family/visitors/staff [] Distress [] Loneliness/isolation [] Abandonment Spirituality of Patient [x] Person of Chey [] Attends Advent of their Chey [x] Believes in Prayer [] Reads Bible or Buddhist materials [] There are Spiritual issues to be addressed Managed Care Manager Interventions [x] Prayer [x] Active listening [] Non-anxious presence [x] Spiritual/emotional support [] Crisis/trauma care [] Spiritual counseling [] Bereavement support [] Provided bereavement packet [] Provided Bible/devotional materials [] Provided toy/stuffed animal, coloring book to patient or family member [] Provided Communion [] Anointing/[place] [] Salvation [x] Completed spiritual assessment [] Other: Impact on Illness or Injury [] Angry [] Fearful [] Anxious [] Often cries [] Exhaustion [] Unable to work [] Unable to attend buddhism [] Unable to walk/stand [] Unable to read [] Unable to drive [] Unable to eat/drink [] Unable to sleep [] Unable to be with family [] Patient intubated [] Other: Summary Time spent with patient 5 min
[2024-11-16 11:51] VITALS: BP 112/44; PULSE 60; RESP 17; TEMP 36.6; O2SAT 97
[2024-11-16 12:22] LABS: Partial Thromboplastin Time 32.5 SECONDS (23.9-36.7)
--- NOTE | 2024-11-16 12:25 | P.DS_ITS ---
Discharge Providers Date of Admission: 11/15/24 10:15 Date of Discharge: November 16, 2024 Attending Provider at Admission: Silverio Valles Attending Provider at Discharge: Kimmie Melendez MD Diagnoses at Discharge Discharge Diagnosis 1. ASHD (arteriosclerotic heart disease): 2. Essential hypertension: Reason for Visit Reason for Visit: CP on and off Dizzy confusion Fatigue Brief History: history and hospital course as per the previous notes and the patient: Arely Trinidad is a 79 year old woman with a history of chronic obstructive pulmonary disease (COPD), coronary artery disease (CAD) status-post single stent placement in 2019, hypertension, hyperlipidemia, and a known abdominal aortic aneurysm (AAA) who presented to the emergency department (ED) for recurrent episodes of chest pain. An episode three weeks ago was described as crushing and involved the whole upper chest and back, lasting approximately 45 minutes without seeking medical care; the patient suspects this may have been a myocardial infarction. Over the last several weeks she reports shorter but more frequent episodes occurring randomly, sometimes associated with dizziness, confusion, and post-episode fatigue. Sublingual nitroglycerin from an old prescription (two tablets taken five minutes apart) did not relieve the initial severe episode and the supply is now exhausted. No clear exertional component is noted; pain is not pleuritic and is unaffected by arm movement or deep inspiration. Denies cough, hemoptysis, fever, nausea, vomiting, diarrhea, melena, hematochezia, or lower-extremity swelling. She sleeps in a recliner for comfort but denies orthopnea or paroxysmal nocturnal dyspnea. Hospital Course Hospital Course ED work-up: vital signs BP 120/56 mmHg, pulse 52 bpm, respiratory rate 18/min, temperature 98 ?F, SpO? 98 % on room air. Complete blood count (CBC) and comprehensive metabolic panel (CMP) are unremarkable. Serial troponins: baseline 9 ng/L, two-hour 7.69 ng/L (non-rising). Electrocardiogram (ECG) shows sinus bradycardia at 47 bpm with T-wave flattening in aVL and V2, no definitive ischemic changes. Chest X-ray demonstrates pulmonary hyperinflation without acute infiltrate. Aspirin 324 mg was administered in the ED, and cardiology was consulted. Socially, she continues to smoke one pack per day and declines alcohol or illicit drugs. She reports missed doses of home aspirin and began atorvastatin only yesterday. She maintains a DNR ([id number]) preference and designates her daughter as surrogate decision-maker. she was kept on heparin infusion with targetted protocol for ACS. underwent cardiac stress test and echo. it did not show any concerning acute WI or ACS findings. cardiology cleared the patient for discharge with nitrates and protonix with FU in 2 weeks. referral provided for follow up. Patient condition has been discussed at length with the patient/family, I have independently reviewed the chart labs imaging and diagnostics and EKG. the goals of care and code status with the patient/family/NOK/legal office services representative, and documented accordingly. The patient/family has been informed about the current condition and further plan of care. Agreed with the plan of care and understood without any language barrier. This documentation was created by [employer] electro mechanical technician software. Every effort was made to ensure accuracy of electro mechanical technician. Any obvious errors or omissions should be clarified with the author of the document. Physical Exam Narrative: General: Alert oriented x3, patient seen without any distress HEENT: Normocephalic, atraumatic, EOMI, breathing at room air Cardio: Regular rate rhythm, normal S1-S2, no murmurs rubs gallops, JVD_normal Respiratory: Good bilateral air entry, no wheezes no rhonchi appreciated GI: Abdomen soft, nontender, nondistended, normoactive bowel sounds present all 4 quadrants, Neuro: Cranial nerves II to XII intact, strength 5/5, sensation 5/5, no gross neurological deficit Behavior: Appropriate and cooperative Extremities: Pulses 2+, no edema, no cyanosis Skin: Visible skin intact, no rashes Discharge Data Studies Completed and Pending Completed Studies During Hospitalization Category Date Time Status Sestamibi Stress Test Request Routine Exams 11/15/24 08:00 Completed XR chest 1V portable [id number] Stat Exams 11/14/24 12:54 Completed NM ángel perf SPECT r/s* [id number] Routine Nuc Med 11/15/24 18:04 Completed CV. echo complete* [id number] Routine Ultrasound 11/14/24 20:24 Completed US abdomen aorta aneurysm screen [CV abd aorta aneury Ultrasound 11/14/24 20:24 Completed scrn [id number]] Routine Pending at discharge Category Date Time Status Basic Metabolic Panel AM LABS Lab 11/17/24 04:00 Ordered Complete Blood Count w/Auto AM LABS Lab 11/17/24 04:00 Ordered PTT [Partial Thromboplastin Time] Timed Lab 11/16/24 11:55 Received Platelet Count Q2D Lab 11/18/24 04:00 Ordered Radiology Impressions Chest X-Ray 11/14/24 12:54 IMPRESSION: 1. Pulmonary hyperinflation. No acute finding. Laboratory Results WBC 4.95 10^3/uL (3.29-11.43) 11/16/24 04:13 RBC 3.83 10^6/uL (3.85-5.65) L 11/16/24 04:13 Hgb 11.70 g/dL (11.27-16.99) 11/16/24 04:13 Hct 34.3 % (36-47) L 11/16/24 04:13 MCV 89.6 fl (85-98) 11/16/24 04:13 MCH 30.5 pg (27-33) 11/16/24 04:13 MCHC 34.1 g/dL (30-55) 11/16/24 04:13 RDW 12.6 % (12.1-15.1) 11/16/24 04:13 Plt Count 143 10^3/cmm (157-399) L 11/16/24 04:13 MPV 10.2 fL (7.4-10.4) 11/16/24 04:13 Neut % (Auto) 40.0 % 11/16/24 04:13 Lymph % (Auto) 47.9 % 11/16/24 04:13 [place] % (Auto) 7.3 % 11/16/24 04:13 Eos % (Auto) 4.4 % 11/16/24 04:13 Baso % (Auto) 0.4 % 11/16/24 04:13 Neut # (Auto) 1.98 10^3/uL (1.8-7.7) 11/16/24 04:13 Lymph # (Auto) 2.4 10^3/uL (0.8-4.8) 11/16/24 04:13 [place] # (Auto) 0.4 10^3/uL (0.2-0.9) 11/16/24 04:13 Eos # (Auto) 0.2 10^3/uL (0.0-0.8) 11/16/24 04:13 Baso # (Auto) 0.0 10^3/uL (0.0-0.1) 11/16/24 04:13 Nucleated RBC % (auto) 0 % 11/16/24 04:13 Nucleated RBCs # 0.0 /100WBC 11/16/24 04:13 APTT 101.1 SECONDS (23.9-36.7) H 11/16/24 04:13 D-Dimer 0.51 ug/mLFEU (0-0.59) 11/14/24 13:25 Sodium 145 mmol/L (136-145) 11/16/24 04:13 Potassium 4.6 mmol/L (3.5-5.1) 11/16/24 04:13 Chloride 113 mmol/L (98-107) H 11/16/24 04:13 Carbon Dioxide 22 mmol/L (22-29) 11/16/24 04:13 Anion Gap 14.6 (5-19) 11/16/24 04:13 BUN 12 mg/dL (8-23) 11/16/24 04:13 Creatinine 0.9 mg/dL (0.5-0.9) 11/16/24 04:13 GFR Calculation Not Reportable 11/16/24 04:13 Glucose 98 mg/dL (65-115) 11/16/24 04:13 Calculated Osmolality 300 mOsm/kg (285-295) H 11/16/24 04:13 Calcium 8.8 mg/dL (8.5-10.5) 11/16/24 04:13 Total Bilirubin 0.4 mg/dL (0.15-1.2) 11/16/24 04:13 AST 21 U/L (0-32) 11/16/24 04:13 ALT 8 U/L (0-33) 11/16/24 04:13 Alkaline Phosphatase 51 U/L (35-105) 11/16/24 04:13 Troponin T Baseline 9 ng/L (0-10) 11/14/24 13:15 Troponin T 120 Minute 7.69 ng/L (0-10) 11/14/24 15:14 Delta Troponin T -1.31 ABS# (0-10) L 11/14/24 15:14 Troponin T Hi Sens 6Hr 7.35 ng/L (0-10) 11/14/24 19:09 Troponin T Hi Sens 6Hr Delta -1.65 ng/L (0-12) L 11/14/24 19:09 Total Protein 6.1 g/dL (6.6-8.7) L 11/16/24 04:13 Albumin 3.6 g/dL (3.5-5.2) 11/16/24 04:13 Globulin 2.5 g/dL (1.3-4.6) 11/16/24 04:13 Vitals Last Vital Signs Temp 97.9 F 11/16/24 11:51 Pulse 60 11/16/24 11:51 Resp 17 11/16/24 11:51 BP 112/44 11/16/24 11:51 Pulse Ox 97 11/16/24 11:51 O2 Del Method Room Air 11/16/24 11:51 Discharge Plan Discharge Patient Disposition: Home Condition: Stable Prescriptions: New isosorbide mononitrate 30 mg Tablet Extended Release 24 Hr 30 mg PO DAILY 90 Days Qty: 90 0RF pantoprazole 40 mg Tablet,Delayed Release (Dr/Ec) 40 mg PO DAILY Qty: 90 0RF Continued trazodone 50 mg tablet 50 mg PO BEDTIME aspirin [Adult Low Dose Aspirin] 81 mg tablet,delayed release (DR/EC) 81 mg PO DAILY atorvastatin 40 mg tablet 40 mg PO DAILY nitroglycerin [Nitrostat] 0.4 mg tablet, sublingual 0.4 mg sublingual Q5M PRN (Reason: chest pain) Qty: 25 3RF Rx Instructions: do not exceed 3 doses per episode Narrow Gauge Operator OK for DC: Cardiology Discharge Order = DC NOW: Discharge Order (Routine); Ordered 11/16/24 Ordered By: Kimmie Melendez Referrals: Maria Eugenia Blanchard FNP [Nurse Practitioner, Cardiology] - 2 weeks Efrain Bullard MD [Referring] - 11/22/24 11:40 am Discharge Diet: Advance as tolerated and Usual diet Discharge Activity: Resume usual activity and Increase activity as tolerated Patient Instructions: Angina, Isosorbide Mononitrate (By mouth), Pantoprazole (By mouth), Hypertensive Crisis (DC), Opioid Safety, Patient Portal & Keyla Instructions Discharge Attestations Time Spent in Discharge Care*: greater than 30 min Specific Discharge Activities: educating patient, educating and/or supporting family/caregiver, discussing with pcp/other providers, discussing with medical case manager/social workers/dc planners, documenting/other paperwork and evaluating patient/reviewing data Status at Discharge: Cognitive status at discharge: cognitively intact , Behavioral status at discharge: cooperative , Functional status at discharge: independent ambulation , Overall status at discharge: patient is back to baseline Quality Metrics Clinical Quality Measures [ No reported AMI, CVA or VTE this stay] Coding Level of Care Code 05426 Diagnoses ASHD (arteriosclerotic heart disease) I25.10 Essential hypertension I10 Hypertension type: essential hypertension
[2024-11-16 14:36] VITALS: BP 112/44; PULSE 70; RESP 16; TEMP 36.6; O2SAT 96
== END 2024-11-16 13:53 | disposition home or self-care (01) | DRG 303 ==
LOC: ER 16:21 → CSU 18:35
PROVIDERS: Internal Medicine; Admitting Provider Internal Medicine; Emergency Provider Family Medicine; Visit Provider Student in an Organized Health Care Education/Training Program
DX: I25.110 Atherosclerotic heart disease of native coronary artery with unstable angina pectoris (principal); I10 Essential (primary) hypertension; Z98.61 Coronary angioplasty status; F17.210 Nicotine dependence, cigarettes, uncomplicated; E78.5 Hyperlipidemia, unspecified; I71.40 Abdominal aortic aneurysm, without rupture, unspecified; Z66 Do not resuscitate; R00.1 Bradycardia, unspecified; Z82.49 Family history of ischemic heart disease and other diseases of the circulatory system; I44.0 Atrioventricular block, first degree; J43.9 Emphysema, unspecified; Z79.82 Long term (current) use of aspirin; Z96.659 Presence of unspecified artificial knee joint; T39.016A Underdosing of aspirin, initial encounter; I08.1 Rheumatic disorders of both mitral and tricuspid valves; Y99.9 Unspecified external cause status
CPT/HCPCS: 36415; 71045; 76706; 78452; 80048; 80053; 84484; 85025; 85378; 85730; 93005; 93017; 93306; 96375; A9500; G0378; J1644; J2405; J2785; J7030; J9999

== ENCOUNTER → 2025-01-01 13:44 | Outpatient (BNVA) | payer MEDICARE, OTHER, SELFPAY | PROVIDERS: PCP Family Medicine; Visit Provider Internal Medicine Cardiovascular Disease | DX: Z09 Encounter for follow-up examination after completed treatment for conditions other than malignant neoplasm (principal); I25.10 Atherosclerotic heart disease of native coronary artery without angina pectoris; I10 Essential (primary) hypertension; Z95.5 Presence of coronary angioplasty implant and graft; F17.200 Nicotine dependence, unspecified, uncomplicated | CPT/HCPCS: 99214 ==